=== PATIENT | male | born 1950 | race Caucasian/White ===

== ENCOUNTER 2017-07-01 16:53 | Emergency (ER) | payer OTHER ==
[~2017-07-01] VITALS: Ht 175.3 cm; Wt 73.5 kg
[~2017-07-01 16:53] MED LIST: ASPIRIN PO; LOSARTAN PO; SINEMET 25-1001 EACH PO
--- OUTSIDE RECORDS SUMMARY | 2017-07-01 16:56 | XMS REPORT | Clinical Summary ---
Author Author [facility] Organization [facility] Address Unknown Phone Unavailable Care Team Providers Care Photogrammetric Technician Name Role Phone Armani Jiang MD PCP Unavailable Allergies Active Allergy Reactions Severity Noted Date Comments Tea Tree Swelling High 10/21/2015 Swollen throat Current Medications Prescription Sig. Disp. Refills Start End Date Status Date formoterol fumarate Take 20 mcg by Active (PERFOROMIST) 20 mcg/2 mL nebulization 2 (two) nebulizer solution times a day. performist used through standard jet nebulizer connected to an air compressor and should not be swallowed or injected. budesonide (PULMICORT) Take 0.25 mg by Active 0.25 mg/2 mL nebulizer nebulization 2 (two) solution times a day. ipratropium-albuterol Take 3 mL by nebulization Active (DUO-NEB) 0.5-2.5 mg/mL 2 (two) times a day. nebulizer gabapentin (NEURONTIN) Take 1,800 mg by mouth Active 600 MG tablet nightly. 3 x 600mg tablets lidocaine (LIDODERM) 5 % Place 1 patch on the skin Active daily. Top of right foot Remove & Discard patch within 12 hours or as directed by carbidopa-levodopa Take 2 tablets by mouth 3 Active (SINEMET) 25-100 mg per (three) times a day. tablet furosemide (LASIX) 20 MG Take 20 mg by mouth Active tablet daily. losartan (COZAAR) 50 MG Take 50 mg by mouth Active tablet daily. aspirin (ECOTRIN) 81 MG Take 81 mg by mouth Active enteric coated tablet daily. benzonatate (TESSALON) Take 100 mg by mouth as Active 100 MG capsule needed for cough (cough). omeprazole (PriLOSEC) 20 Take 40 mg by mouth Active MG capsule daily. albuterol (PROVENTIL Inhale 2 puffs every 4 Active HFA;VENTOLIN HFA) 90 (four) hours as needed mcg/actuation inhaler for shortness of breath. QUEtiapine (SEROquel) 25 Take 12.5 mg by mouth Active MG tablet nightly. Active Problems Problem Noted Date Coronary artery disease due to lipid rich plaque 10/22/2015 Symptomatic bradycardia 10/22/2015 Hypertension 10/22/2015 Parkinson disease 10/22/2015 Paresthesia and pain of left extremity 10/22/2015 Chest pain, atypical 10/22/2015 ELIZA treated with BiPAP 10/22/2015 Chronic bronchitis 10/22/2015 GERD (gastroesophageal reflux disease) 10/22/2015 Syncope 10/22/2015 Family History Medical History Relation Name Comments No Known Problems Father No Known Problems Mother Relation Name Status Comments Father Mother Social History Tobacco Use Types Packs/Day Years Used Date Never Smoker Alcohol Use Drinks/Week oz/Week Comments No Sex Assigned at Date Recorded Not on file Last Filed Vital Signs Not on file Plan of Treatment Health Maintenance Due Date Last Done Comments COLONOSCOPY 02/28/2002 ZOSTER VACCINE 2012 PNEUMOCOCCAL 02/28/2017 POLYSACCHARIDE VACCINE AGE 65 AND OVER PNEUMOCOCCAL-13 02/28/2017 INFLUENZA VACCINE 10/10/2017 12/15/2013 Implants Implanted Type Area Senior Marketing Specialist Device Expiration Model / Identifier Date Serial / Lot System Reveal Linq W/Monitors - Cardiovasc N/A: Chest [employer] 09/22 LINQSYS / [id number] - [id number] CARDIAC RHYTHM [id number] Implanted: Qty: 1 on 10/26/2015 by Implants DISEASE MGMT / Sylvester Barth MD Results Not on fileafter 06/30/2016 Insurance Payer Benefit Subscriber ID Type Phone Address Plan / Group CIGNA CIGNA OPEN xxxxxxxxxxx HMO ACCESS/NET WORK Work: [id number] [place] [id number] Home:
--- OUTSIDE RECORDS SUMMARY | 2017-07-01 16:56 | XMS REPORT ---
Author Author [facility] Address Unknown Phone Unavailable Care Team Providers Care Manager Performance Improvement Name Role Phone Unavailable Unavailable Problems This patient has no known problems. Allergies, Adverse Reactions, Alerts This patient has no known allergies or adverse reactions. Medications This patient has no known medications. Encounters Start Date/Time End Date/Time Encounter Type Admission Type Attending Clinicians Care Facility Care Department Encounter ID 2017-04-16 07:55:59 2017-04-16 07:55:59 Outpatient [facility] [id number] 2016-12-29 15:11:14 2016-12-29 15:11:14 Outpatient [facility] [id number]
[2017-07-01] MEDS ORDERED: IBUPROFEN 600 MG TAB PO STA (17:08)
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
== END 2017-07-01 19:19 | disposition home or self-care (01) ==
LOC: ER 16:53
DX: M54.2 Cervicalgia (principal); S16.1XXA Strain of muscle, fascia and tendon at neck level, initial encounter; M25.511 Pain in right shoulder; V43.52XA Car driver injured in collision with other type car in traffic accident, initial encounter; Y92.488 Other paved roadways as the place of occurrence of the external cause; I10 Essential (primary) hypertension; G20 Parkinson's disease
CPT/HCPCS: 72125; 99283